=== PATIENT | female | born 1960 | race Two or more races ===

== ENCOUNTER → 2025-02-01 | Outpatient (CLI) | payer MEDICAID, SELFPAY ==
--- NOTE | 2025-02-01 14:43 | XR_ITS ---
Examination: Hand, left 3 views Technique: Hand AP, oblique, lateral 3 views Date and time of exam: February 01, 2025, 1446 hours INDICATIONS: Injury to the hand January 14, 2025 with flank pain FINDINGS: Mild osteopenia Moderate osteoarthritis interphalangeal joint No acute fracture There is no true lateral view of the IMPRESSION: Recommend this patient return for a coned true lateral view of the
== END | disposition home or self-care (01) ==
LOC: CDIM 14:18
PROVIDERS: PCP Family Medicine; Referring Provider Nurse Practitioner Gerontology; Visit Provider Nurse Practitioner Gerontology
DX: S69.92XA Unspecified injury of left wrist, hand and finger(s), initial encounter (principal); X58.XXXA Exposure to other specified factors, initial encounter
CPT/HCPCS: 73130